=== PATIENT | female | born 1975 | race African-American/Black ===

== ENCOUNTER 2019-06-12 22:40 | Emergency (ER) | payer OTHER ==
--- OUTSIDE RECORDS SUMMARY | 2019-06-12 22:42 | XMS REPORT ---
:1975 [facility] Address [address] [place] [id number] Care Team Providers Name Role Phone MYLENE KOLarry Unavailable Unavailable Problems This patient has no known problems. Allergies, Adverse Reactions, Alerts This patient has no known allergies or adverse reactions. Medications This patient has no known medications. Results Test Description Test Time Test Comments Text Results Atomic Results Result Comments RAD, CHEST, 2 2017-03-25 Reason for FINAL REPORT PATIENT ID: VIEWS 00:17:00 exam:->FEVERReason for [id number] Examination: exam:->COUGHIs the patient Two view Chest X-ray. ?->NoShould this be CLINICAL HISTORY: Fever performed at the and cough COMPARISON: bedside?->No 07/03/2016 The cardiomediastinal and hilar contours are unremarkable. There is no focal consolidation, pleural effusion, pneumothorax or evidence of overt pulmonary edema. There is no acute bony abnormality. IMPRESSION: No acute abnormality. Signed: Jassi Jalloh Verified Date/Time: 03/25/2017 00:17:10 Reading Location: [address] Reading Room D STREP A SCREEN 2017-03-25 00:13:00 Test Item Value Reference Range Comments STREP A ANTIGEN (BEAKER) (test anps=772) Negative Negative RAPID INFLUENZA A&B [id number] 00:12:00 Test Item Value Reference Range Comments RAPID INFLUENZA A AG (BEAKER) (test Negative Negative, Inconclusive izxs=5405) RAPID INFLUENZA B AG (BEAKER) (test Negative Negative, Inconclusive pxcf=9456) RAPID INFLUENZA A&B [id number] 14:51:00 Test Item Value Reference Range Comments RAPID INFLUENZA A AG (BEAKER) (test Negative Negative, Inconclusive aupn=0114) RAPID INFLUENZA B AG (CorengiAKER) (test Negative Negative, Inconclusive djii=1145)
[2019-06-12] MEDS ORDERED: TRAMADOL HCL 50 MG TAB ONE (23:28)
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
[2019-06-13 02:27] VITALS: BP 120/76; TEMP 97.6; O2SAT 99
--- NOTE | 2019-06-15 12:20 | RAD REPORT ---
EXAM DESCRIPTION: CT - Soft Tissue Neck W/Contr - 06/13/2019 6:14 am CLINICAL HISTORY: Pain, difficulty swallowing COMPARISON: None. TECHNIQUE: Axial 2.[address] imaging of the neck performed. Reformatted coronal and sagittal images ob tained. Intravenous contrast utilized. Automated exposure control, adjustment of the mA and/or kV according to patient size, or use of itera tive reconstruction was performed. FINDINGS: There is no parapharyngeal soft tissue thickening. Prevertebral soft tissues appear normal . Normal epiglottis. There is no adenoid or tonsillar enlargement. A few minimally enlarged the oxana bular glands are present bilaterally at two 1.2 cm. The imaged portions of the paranasal sinuses and mastoid air cells are clear. Image facial bones appe ar intact. The thyroid contains a 4 mm low-density nodule within the right lobe. The carotid and vertebral vesse ls are well-opacified. Jugular veins are widely patent. There is mild reversal of cervical lordosis. Moderate hypertrophic endplate changes within the C3-C5 vertebral bodies with degenerative disc narrowing. Uncovertebral joint hypertrophy contributes to mul tilevel bilateral foraminal stenosis. IMPRESSION: 1. No acute finding within the neck soft tissues to account for difficulty swallowing. 2. Very mild bilateral submandibular lymphadenopathy. 3. Cervical spondylosis and muscle spasm. 4. Subcentimeter incidental thyroid nodule. No follow-up imaging is recommended. Reference: J Am Shayan Radiol. 2015 May;12(2): 143-50 Electronically signed by: Namita Colindres DO 06/13/2019 1:10 AM SIGNALS INTELLIGENCE SUPERINTENDENT Due to temporary technical issues with the PACS/Fluency reporting system, reports are being signed by the in house radiologist as a courtesy to ensure prompt reporting. The interpreting radiologist is f ully responsible for the content of the report.
== END 2019-06-13 01:31 | disposition home or self-care (01) ==
LOC: ER 22:40
DX: S10.93XA Contusion of unspecified part of neck, initial encounter (principal); W50.0XXA Accidental hit or strike by another person, initial encounter; Y93.9 Activity, unspecified; Y92.9 Unspecified place or not applicable
CPT/HCPCS: 36415; 70491; 99284; Q9967

== ENCOUNTER 2023-03-21 12:41 | Emergency (ER) | payer OTHER ==
[2023-03-21 13:49] LABS: SARS-CoV-2 Antigen Rapid Res Negative (Negative)
--- NOTE | 2023-03-21 13:53 | ER ---
Nurse's Notes [facility] Name: Katheryn Delcid Age: 47 yrs Sex: Female : 1975 Arrival Date: 03/21/2023 Time: 12:41 Bed 9 Private MD: Diagnosis: Acute pharyngitis due to other specified organism;Acute pharyngitis, unspecified Presentation: 03/21 12:47 Chief complaint: Patient states: Sore throat, body aches, headaches for about 1-2 days. nj1 Worsen. Has been around someone that had the flu. Coronavirus screen: Vaccine status: Patient reports receiving the 2nd dose of the covid vaccine. Ebola Screen: Patient denies travel to an Ebola-affected area in the 21 days before illness onset. Initial Sepsis Screen: Does the patient meet any 2 criteria? No. Patient's initial sepsis screen is negative. Does the patient have a suspected source of infection? No. Patient's initial sepsis screen is negative. Risk Assessment: Do you want to hurt yourself or someone else? Patient reports no desire to harm self or others. Onset of symptoms was March 19, 2023. 12:47 Method Of Arrival: Ambulatory [facility] 12:47 Acuity: JOHNNY 4 nj1 Historical: - Allergies: 12:48 No Known Allergies; nj1 - PMHx: 12:48 None; nj1 - Immunization history:: Client reports receiving the 2nd dose of the Covid vaccine. - Social history:: Smoking status: Patient denies any tobacco usage or history of. Screenin:27 [facility] ED Fall Risk Assessment (Adult) History of falling in the last 3 months, bp including since admission No falls in past 3 months (0 pts). Abuse screen: Denies threats or abuse. Denies injuries from another. Nutritional screening: No deficits noted. Tuberculosis screening: No symptoms or risk factors identified. Vital Signs: 12:47 BP 151 / 96; Pulse 78; Resp 18; Temp 99(O); Pulse Ox 100% ; Weight 90.72 kg; Height 5 ia1 ft. 4 in. ; Pain 10/10; 12:47 Body Mass Index 34.33 (90.72 kg, 162.56 cm) [facility] 12:47 Pain Scale: Adult [facility] ED Course: 12:42 Patient arrived in ED. mg5 12:48 Triage completed. nj1 12:49 Arm band placed on right wrist. nj1 12:51 Asad Kaur MD is Attending Physician. chanel 12:57 Wally New, RN is Primary Nurse. bp 14:27 Patient has correct armband on for positive identification. bp 14:27 No provider procedures requiring assistance completed. Patient did not have IV access bp during this emergency room visit. Administered Medications: 14:00 Drug: AZITHromycin PO 500 mg PO once Route: PO; bp 14:27 Follow up: Response: No adverse reaction bp Medication: 14:27 VIS not applicable for this client. bp Outcome: 13:52 Discharge ordered by MD. chanel 14:27 Discharged to home ambulatory, bp 14:27 Condition: stable 14:27 Discharge instructions given to patient, Instructed on discharge instructions, follow up and referral plans. medication usage, Demonstrated understanding of instructions, follow-up care, medications, Prescriptions given X 2, 14:28 Patient left the ED. bp Signatures: Asad Kaur MD MD cha Peltier, Brian, RN RN bp Nina Freitas RN RN nj1 Jake Sylvia mg5
--- NOTE | 2023-03-21 13:53 | EDPHYS ---
Physician Documentation [facility] Name: Katheryn Delcid Age: 47 yrs Sex: Female : 1975 Arrival Date: 03/21/2023 Time: 12:41 Bed 9 Private MD: ED Physician Asad Kaur HPI: 03/21 13:47 This 47 yrs old Black Female presents to ER via Ambulatory with complaints of Sore chanel Throat. 13:47 The patient presents with sore throat. The patient describes throat pain as raw, chanel scratchy. Onset: The symptoms/episode began/occurred 2 day(s) ago. Severity of symptoms: At their worst the symptoms were mild, moderate, in the emergency department the symptoms are unchanged. Modifying factors: The symptoms are alleviated by nothing, the symptoms are aggravated by swallowing. Associated signs and symptoms: Pertinent positives: rhinorrhea, Sore throat. The patient has not experienced similar symptoms in the past. Historical: - Allergies: 12:48 No Known Allergies; nj1 - PMHx: 12:48 None; nj1 - Immunization history:: Client reports receiving the 2nd dose of the Covid vaccine. - Social history:: Smoking status: Patient denies any tobacco usage or history of. ROS: 13:48 Constitutional: Negative for fever, chills, and weight loss, Eyes: Negative for injury, chanel pain, redness, and discharge, Neck: Negative for injury, pain, and swelling, Cardiovascular: Negative for chest pain, palpitations, and edema, Respiratory: Negative for shortness of breath, cough, wheezing, and pleuritic chest pain, Abdomen/GI: Negative for abdominal pain, nausea, vomiting, diarrhea, and constipation, Back: Negative for injury and pain, : Negative for injury, bleeding, discharge, and swelling, MS/Extremity: Negative for injury and deformity, Skin: Negative for injury, rash, and discoloration, Neuro: Negative for headache, weakness, numbness, tingling, and seizure, Psych: Negative for depression, anxiety, suicide ideation, homicidal ideation, and hallucinations, Allergy/Immunology: Negative for hives, rash, and allergies, Endocrine: Negative for neck swelling, polydipsia, polyuria, polyphagia, and marked weight changes, Hematologic/Lymphatic: Negative for swollen nodes, abnormal bleeding, and unusual bruising, 13:48 ENT: Positive for rhinorrhea, sinus congestion, sore throat, Exam: 13:48 Constitutional: This is a well developed, well nourished patient who is awake, alert, chanel and in no acute distress. Head/Face: Normocephalic, atraumatic. Eyes: Pupils equal round and reactive to light, extra-ocular motions intact. Lids and lashes normal. Conjunctiva and sclera are non-icteric and not injected. Cornea within normal limits. Periorbital areas with no swelling, redness, or edema. Neck: Trachea midline, no thyromegaly or masses palpated, and no cervical lymphadenopathy. Supple, full range of motion without nuchal rigidity, or vertebral point tenderness. No Meningismus. Chest/axilla: Normal chest wall appearance and motion. Nontender with no deformity. No lesions are appreciated. Cardiovascular: Regular rate and rhythm with a normal S1 and S2. No gallops, murmurs, or rubs. Normal PMI, no JVD. No pulse deficits. Respiratory: Lungs have equal breath sounds bilaterally, clear to auscultation and percussion. No rales, rhonchi or wheezes noted. No increased work of breathing, no retractions or nasal flaring. Abdomen/GI: Soft, non-tender, with normal bowel sounds. No distension or tympany. No guarding or rebound. No evidence of tenderness throughout. Back: No spinal tenderness. No costovertebral tenderness. Full range of motion. Skin: Warm, dry with normal turgor. Normal color with no rashes, no lesions, and no evidence of cellulitis. MS/ Extremity: Pulses equal, no cyanosis. Neurovascular intact. Full, normal range of motion. Neuro: Awake and alert, GCS 15, oriented to person, place, time, and situation. Cranial nerves II-XII grossly intact. Motor strength 5/5 in all extremities. Sensory grossly intact. Cerebellar exam normal. Normal gait. Psych: Awake, alert, with orientation to person, place and time. Behavior, mood, and affect are within normal limits. 13:48 ENT: Posterior pharynx: Airway: no evidence of obstruction, Tonsils: bilaterally enlarged, with erythema, Uvula: normal, midline, non-edematous, no erythema, swelling, that is mild, erythema, that is mild, exudate, is not appreciated, peritonsillar mass, is not appreciated, pooling of secretions, is not appreciated, Vital Signs: 12:47 BP 151 / 96; Pulse 78; Resp 18; Temp 99(O); Pulse Ox 100% ; Weight 90.72 kg; Height 5 nj1 ft. 4 in. ; Pain 10/10; 12:47 Body Mass Index 34.33 (90.72 kg, 162.56 cm) nj1 12:47 Pain Scale: Adult nj1 MDM: 12:51 Patient medically screened. [facility] 13:49 Differential diagnosis: group A strep tonsillitis, influenza, laryngitis, peritonsillar chanel abscess pharyngitis, tonsillitis, uvulitis. Data reviewed: vital signs, nurses notes, lab test result(s), Flu:. Consideration of Admission/Observation Escalation of care including admission/observation considered. I considered the following discharge prescriptions or medication management in the emergency department Medications were administered in the Emergency Department. See MAR. Test considered but Not performed: Labs: no labs. Historians other than the Patient: pt well informed. Care significantly affected by the following chronic conditions: none. 03/21 12:51 Order name: Strep [facility] 03/21 12:51 Order name: Flu [facility] 03/21 12:51 Order name: SARS RAPID; Complete Time: 13:[address] [facility] 03/21 13:51 Order name: Throat Culture EDMS Administered Medications: 14:00 Drug: AZITHromycin PO 500 mg PO once Route: PO; bp 14:27 Follow up: Response: No adverse reaction bp Disposition Summary: 03/21/23 13:52 Discharge Ordered Notes: Location: Home [facility] Problem: new chanel Symptoms: have improved chanel Condition: Stable chanel Diagnosis - Acute pharyngitis due to other specified organism chanel - Acute pharyngitis, unspecified chanel Followup: chanel - With: Private Physician - When: 2 - 3 days - Reason: Recheck today's complaints, Continuance of care, Re-evaluation by your physician Discharge Instructions: - Discharge Summary Sheet chanel - Pharyngitis chanel - Sore Throat chanel - Strep Throat, Adult chanel - Upper Respiratory Infection, Adult chanel - Upper Respiratory Infection, Adult, [id number] chanel - Pharyngitis, [id number] chanel - Sore Throat, [id number] chanel Forms: - Medication Reconciliation Form chanel - Thank You Letter chanel - Antibiotic Education chanel - Prescription Opioid Use chanel - Patient Portal Instructions chanel - Leadership Thank You Letter chanel - Work release form bc6 Prescriptions: - Zithromax Z-Mickey 250 mg Oral Tablet - take 1 tablet ORAL route as directed for 5 days Day 1 - take two (2) tablets chanel one time. Day 2, 3, 4 , 5 take one (1) tablet once daily.; 6 tablet; Refills: 0, Product Selection Permitted - Medrol (Mickey) 4 mg Oral Tablets, Dose Pack - take 1 tablet ORAL route as directed - follow package instructions; 1 packet; chanel Refills: 0, Product Selection Permitted Signatures: Dispatcher [employer] Asad Amador MD MD cha Peltier, Brian, RN RN bp Nina Freitas RN RN nj1
[2023-03-21] MEDS ORDERED: AZITHROMYCIN 250 MG TAB ONE (14:08)
[2023-03-21 14:33] VITALS: BP 151/96; TEMP 99; O2SAT 100
== END 2023-03-21 14:28 | disposition home or self-care (01) ==
LOC: ER 12:41
DX: J02.8 Acute pharyngitis due to other specified organisms (principal); Z11.52 Encounter for screening for COVID-19
CPT/HCPCS: 36415; 87070; 87081; 87804; 87811; 99283